=== PATIENT | male | born 2000 | race Hispanic/Latino ===

== ENCOUNTER 2021-01-03 19:04 | Emergency (ER) | payer BC, SELFPAY ==
--- NOTE | ~2021-01-03 | XR_ITS ---
XR foot RT 2V 01/03/2021 19:59 INDICATION: Right foot pain. Foreign body. PROCEDURE: 2 views right foot COMPARISON: No prior studies for comparison. FINDINGS: Fracture, dislocation or subluxation is not identified. The soft tissues appear within norm al limits. No radiopaque foreign bodies are identified. IMPRESSION: 1: NO ACUTE BONE OR JOINT ABNORMALITY IDENTIFIED. Reviewed, dictated and finalized at location A.
[2021-01-03 19:08] VITALS: BP 154/86; PULSE 90; RESP 18; TEMP 36.7; O2SAT 99
--- NOTE | 2021-01-03 20:27 | ED.WOUNDLAC ---
HPI - Wound/Laceration General Chief Complaint: Wound/Laceration Stated Complaint: wound to right foot Time Seen by Provider: 01/03/21 20:21 History of Present Illness HPI narrative: Patient is a 20-year-old male who presents ER with concern for foreign body in his right foot. Stepped on a splinter 8 days ago. Thought he fully removed it. Thinks he has been having some purulent drainage since then. He was seen in urgent care and prescribed Bactrim but he has not taken it because he did not think that he had systemic symptoms. No fevers or chills or sweats. No redness or streaking up the foot or leg. He thinks that he removed all of the splinter. Related Data Home Medications Medication Instructions Recorded Confirmed sulfamethoxazole-trimethoprim tablet 01/03/21 Allergies Allergy/AdvReac Type Severity Reaction Status Date / Time No Known Allergies Allergy Verified 01/03/21 19:50 Review of Systems Constitutional: Constitutional: Denies chills and Denies fever(s) Integumentary/Breasts: Skin/Breast: Denies erythema, Denies rash and Denies skin ulcer Comments: Healing wound to right foot PMFSH Past Medical History Medical History (Updated 01/03/21 @ 21:00 by Moises Vásquez MD) Healthy adult male Surgical History Surgical History (Updated 01/03/21 @ 20:28 by Moises Vásquez MD) History of microdiscectomy Exam Narrative: GENERAL: Well-appearing, well-nourished, and in no acute distress. HEAD: Normocephalic, atraumatic. EXTREMITIES: Normal range of motion. No edema. Plantar aspect of left foot lateral aspect with dry skin with central healing wound without purulent drainage or fluctuant abscess. No surrounding cellulitis. SKIN: Warm, dry, no rash. NEURO: Alert and oriented x3. PSYCH: Normal mood and affect. Course Course Emergency Course: No foreign body visualized on x-ray. No purulent drainage. Recommend he take his antibiotics as prescribed previously. Attempted visualization formed by the bedside ultrasound but none could be seen. Vital Signs Vital signs: Vital Signs Temperature 98.0 F 01/03/21 19:08 Pulse Rate 90 01/03/21 19:08 Respiratory Rate 18 01/03/21 19:08 Blood Pressure 154/86 H 09/10/21 19:08 Pulse Oximetry 99 09/10/21 19:08 Temperature 98.0 F 01/03/21 19:08 Pulse Rate 90 01/03/21 19:08 Respiratory Rate 18 01/03/21 19:08 Blood Pressure 154/86 H 01/03/21 19:08 Pulse Oximetry 99 01/03/21 19:08 Discharge Plan Discharge Clinical Impression: Wound of foot Patient Disposition: Home, Self-Care Condition: Stable Instructions: Puncture Wound (ED) Additional Instructions: Return the ER if your foot is red/hot/swollen, you have worsening pain, you have additional concerns. You may take the Bactrim that was prescribed to you. Prescriptions: No Action sulfamethoxazole-trimethoprim 800-160 mg tablet RF: 0 Follow-up/Referrals: Barrett,ASHLEY Russo [Primary Care Provider] - 1 Week
== END 2021-01-03 21:35 | disposition home or self-care (01) ==
PROVIDERS: Emergency Provider Emergency Medicine; PCP Physician Assistant
DX: S91.301A Unspecified open wound, right foot, initial encounter (principal); W45.8XXA Other foreign body or object entering through skin, initial encounter
CPT/HCPCS: 73620; 99283